=== PATIENT | male | born 1960 ===

== ENCOUNTER 2016-11-23 09:29 | Inpatient (IN) | payer OTHER ==
[~2016-11-23] VITALS: Ht 172.7 cm; Wt 89.4 kg
[2016-12-05 21:29] VITALS: BP 126/78
--- NOTE | 2016-12-05 21:29 | NUR ---
ADMISSION NOTE RECEIVED IN THE UNIT AT THIS TIME. PATIENT IS A 56 YEAR OLD MALE WHO PRESENTS TO [facility] FOR SUPERVISED WITHDRAWAL FOR ETOH DEPENDENCE. VS BP-126/78, P-70 T-98.1 R-16 PA-5/10 ON RIGHT RING FINGER AMPUTATION. SpO2 AT 97% IN RA. BODY CHECK DONE, PATIENT WITH RIGHT RING FINGER AMPUTATION . LUNGS CLEAR AND BOWEL SOUNDS ACTIVE ON ALL QUADRANT. ABDOMEN SOFT AND NON-DISTENDED. HAD BM TODAY AND NO DIFFICULTY URINATING . HEIGHT IS 5'8 AND WEIGHT IS 197 LBS . PATIENT IS ALLERGIC TO DILAUDID, EFFEXOR, AND PAXIL PATIENT ON REGULAR DIET AND FULL CODE. PATIENT LIVES WITH A ROOMMATE. 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 HE LIVES WITH A ROOMMATE. PATIENT IS HERE BECAUSE HE STATES "I WANT TO MAKE SURE I'M OKAY BEFORE I START REHAB". PATIENT REPORTS PMH OF DEPRESSION, LEFT DISLOCATED SHOULDER, OSTEOMYELITIS ON LEFT FEMUR, MRSA (LEFT ARM AND STOMACH) AND RIGHT RING FINGER AMPUTATION. NO SEIZURE HISTORY. PATIENT IS THE SOURCE OF INFORMATION. PATIENT'S DRUG OF CHOICE ARE FF: 1.ALCOHOL - STARTED DRINKING SINCE 13 YEARS OLD. DRINKS 12 PACK OF BEER DAILY FOR 2 YEARS. LAST DRINK WAS 2 BEERS ON 11/30/16 2.MARIJUANA-STARTED SINCE HE WAS 12 YEARS OLD. PATIENT SMOKES 1/2 GRAMS DAILY FOR 6 MONTHS. LAST USE WAS 1/4 GRAMS ON 12/05/16 HIS TREATMENT HISTORY WAS IN [place], [place], A YEAR AGO AND STAYED THERE FOR 28 DAYS. PATIENT'S LONGEST PERIOD OF SOBRIETY WAS 15 YEARS, WHEN HE WAS 33 YEARS OLD. PATIENT SMOKES 8-10 CIGARETTE DAILY. URINE DRUG SCREEN RESULTED AND PATIENT WAS POSITIVE FOR BENZO. PATIENT ADMITTED THAT "I TOOK 2 XANAX (5MG) " BEFORE HE CAME HERE TO OVERCOME HIS ANXIETY. PATIENT STATES HE DOES NOT HAVE "PCP". PATIENT ANXIOUS DURING THE INTERVIEW PROCESS. CIWA 3. PATIENT WAS SEEN BY DR. KOENIG WHILE IN INTAKE. PLACED ON FALL/SEIZURE PRECAUTION. PATIENT ORIENTED TO SURROUNDINGS AND HOW TO USE CALL LIGHT. SAFETY MEASURES IN PLACE. CALL LIGHT IN REACH.WILL CONTINUE TO MONITOR.
[2016-12-05] MEDS ORDERED: LOPERAMIDE HCL 2 MG CAPSULE PO PRN ×2 (22:15)
[2016-12-05] MEDS ORDERED: LORAZEPAM 1 MG TABLET PO PRN ×2 (22:15)
[2016-12-05] MEDS ORDERED: CLONIDINE HCL 0.1 MG TABLET PO PRN (22:15)
[2016-12-05] MEDS ORDERED: NICOTINE POLACRILEX 4 MG GUM-PK OF TEN BC PRN (22:15)
[2016-12-05] MEDS ORDERED: MIRALAX 17 GM POWD.PACK PO PRN (22:15)
[2016-12-05] MEDS ORDERED: THIAMINE HCL 200 MG/2 ML VIAL IM ONE (22:15)
[2016-12-05] MEDS ORDERED: DICYCLOMINE HCL 20 MG TABLET PO PRN (22:15)
[2016-12-05] MEDS ORDERED: diphenhydrAMINE 50 MG CAPSULE PO PRN (22:15)
[2016-12-05] MEDS ORDERED: MAGNESIUM HYDROXIDE 30 ML LIQUID UDC PO PRN (22:15)
[2016-12-05] MEDS ORDERED: LORAZEPAM 2 MG/1 ML VIAL IM PRN (22:15)
[2016-12-05] MEDS ORDERED: ONDANSETRON ODT 4 MG TAB.RAPDIS SL PRN (22:15)
[2016-12-05] MEDS ORDERED: ONDANSETRON 4 MG/2 ML VIAL IM PRN (22:15)
[2016-12-05] MEDS ORDERED: MAG HYDROX/AL HYDROX/SIMETH 30 ML LIQUID UDC PO PRN (22:15)
[2016-12-05] MEDS ORDERED: ACETAMINOPHEN 325 MG TABLET PO PRN (22:15)
[2016-12-05] MEDS ORDERED: THIAMINE HCL 200 MG/2 ML VIAL ONE (23:23)
[2016-12-05] MEDS: IBUPROFEN 400 MG TABLET PO PRN (23:23)
[2016-12-05] MEDS: HYDROXYZINE PAMOATE 25 MG CAPSULE PO PRN (23:23)
--- NOTE | 2016-12-05 23:23 | NUR ---
PRN ATIVAN /CLONIDINE RE-ASSESSMENT ATIVAN AND CLONIDINE HELPFUL AND EFFECTIVE. CIWA FROM 12 TO 6 AND COWS FROM 15 TO 8. PATIENT LESS ANXIOUS AND LESS RESTLESS AND AGITATED. WILL CONTINUE TO MONITOR. Addendum: 12/06/16 at 0512 by YESY BLAND LVN ERROR : CHARTING IS FOR ANOTHER PATIENT
--- NOTE | 2016-12-05 23:23 | NUR ---
PRN BENADRYL/MOTRIN/VISTARIL PATIENT REQUESTS FOR SLEEP AID , C/O ANXIETY AND PAIN ON RIGHT RING FINGER AMPUTATION. PRN BENADRYL, MOTRIN AND VISTARIL GIVEN. WILL MONITOR FOR EFFECTIVENESS.
[2016-12-05] MEDS ORDERED: HYDROXYZINE PAMOATE 25 MG CAPSULE ONE (23:24)
[2016-12-05] MEDS ORDERED: IBUPROFEN 400 MG TABLET ONE (23:32)
[2016-12-05 23:35] LABS: *AMPHETAMINE, URINE NEGATIVE (NEGATIVE); *BARBITURATE, URINE NEGATIVE (NEGATIVE); *CANNABINOID, URINE POSITIVE (NEGATIVE); *COCCAINE, URINE NEGATIVE (NEGATIVE); *OPIATE, URINE NEGATIVE (NEGATIVE); *PHENCYCLIDINE SCREEN,URINE NEGATIVE (NEGATIVE)
[2016-12-06] VITALS: BP 120/70
[2016-12-06 01:47] LABS: BASOPHILS # (AUTO) 0.1 K/uL (0.0-0.2); BASOPHILS % (AUTO) 0.8 % (0.0-2.0); EOSINOPHILS # (AUTO) 0.5 K/uL (0.0-0.7); EOSINOPHILS % (AUTO) 7.5 % (0.0-7.0); HEMATOCRIT 39.4 % (40.0-50.0); HEMOGLOBIN 13.6 g/dL (14.0-18.0); LYMPHOCYTES # (AUTO) 1.9 K/uL (0.8-4.8); LYMPHOCYTES % (AUTO) 28.6 % (20.5-51.5); MEAN CORPUSCULAR HEMOGLOBIN 30.9 uug (27.0-31.0); MEAN CORPUSCULAR HGB CONC 35 g/dL (32.0-37.0); MEAN CORPUSCULAR VOLUME 89.3 fL (82.0-92.0); MONOCYTES # (AUTO) 0.6 K/uL (0.1-1.30); MONOCYTES % (AUTO) 9.5 % (0.0-11.0); NEUTROPHILS # (AUTO) 3.7 K/uL (1.8-8.9); NEUTROPHILS % (AUTO) 53.6 % (38.5-71.5); PLATELET COUNT (AUTO) 246 K/uL (150-450); RED BLOOD CELL COUNT(AUTO) 4.41 MIL/uL (4.70-6.10); RED CELL DISTRIBUTION WIDTH 12.9 % (11.5-14.5); WHITE BLOOD COUNT (AUTO) 6.8 K/uL (4.0-11.2)
[2016-12-06 01:50] LABS: ALANINE AMINOTRANSFERASE 39 U/L (16-63); ALBUMIN 3.5 g/dL (3.4-5.0); ALKALINE PHOSPHATASE 65 U/L (50-136); AMYLASE 69 U/L (25-115); ASPARTATE AMINOTRANSFERASE 22 U/L (15-37); BILIRUBIN,TOTAL 0.2 mg/dL (0.2-1.0); CALCIUM 8.1 mg/dL (8.5-10.1); CARBON DIOXIDE 27 mmol/L (21-32); CHLORIDE 105 mmol/L (98-107); GFR 77 mL/min (>60); GLUCOSE 123 mg/dL (74-106); LIPASE 109 U/L (73-393); MAGNESIUM 2.1 mg/dL (1.8-2.4); POTASSIUM 3.7 mmol/L (3.5-5.1); SODIUM SERUM 141 mmol/L (136-145); TOTAL PROTEIN, SERUM 6.6 g/dL (6.4-8.2); UREA NITROGEN, BLOOD 14 mg/dL (7-18)
[2016-12-06 01:59] LABS: THYROID STIMULATING HORMONE 1.754 mIU/mL (0.358-3.740)
[2016-12-06 02:04] LABS: ETHANOL < 3 MG/DL (0-0)
[2016-12-06 02:06] LABS: HIV-1 p24 ANTIGEN NON REACTIVE (NONREACTIVE); HIV-1/2 ANTIBODY NON REACTIVE (NONREACTIVE)
[2016-12-06 02:21] LABS: CHOLESTEROL 151 mg/dL (<200); HDL CHOLESTEROL 35 mg/dL (40-60); TRIGLYCERIDES 145 MG/DL (30-150)
[2016-12-06 04:00] VITALS: BP 102/58
--- NOTE | 2016-12-06 07:05 | NUR ---
Start of Shift Endorsement received from nightshift nurse. PT is a 56 y/o male admitted for alcohol dependence. Pt is being treated by PRN medications until farther evaluation by Dr. Kay. Pt has received PRN Benadryl, Motrin and Vistaril. Pt is tolerating the detox well at this time AEB CIWA 1 at 0400. Pt slept 6 hours. VS WNL, Full Code. Remains compliant with medication and diet regimen. All needs have been met, All safety measures in place per hospital policy. Bed in lowest position, side rails up x2, call-light within reach. Will continue to monitor
--- NOTE | 2016-12-06 07:32 | NUR ---
END OF SHIFT NOTE PATIENT IS NEWLY ADMIT FOR ETOH DEPENDENCE. PATIENT IS FULL CODE, REGULAR DIET AND ALLERGIC TO PAXIL, EFFEXOR AND DILAUDID. PATIENT DRINKS 12 PACK OF BEER FOR 2 YEARS . LAST DRINK WAS 2 BEERS ON 12/05/16. PATIENT IS NOT ON TAPER, PRN AVAILABLE. PATIENT REPORTS PMH OF DEPRESSION. DISLOCATED LEFT SHOULDER, LEFT FEMUR OSTEOMYELITIS, MRSA (LEFT ARM AND STOMACH) AND RIGHT RING FINGER AMPUTATION. NO SEIZURE HISTORY. WOUND CONSULT ORDER ON RIGHT FINGER AMPUTATION. PATIENT WAS GIVEN THIAMINE INJECTION ON LEFT DELTOID AND PRN BENADRYL, VISTARIL AND MOTRIN AT 2051., EFFECTIVE. PATIENT WAS PLACED ON FALL/SEIZURE PRECAUTION. SAFETY MEASURES IN PLACE. CALL LIGHT IN REACH. WILL CONTINUE TO MONITOR . SLEPT 6 HOURS. FLUID INTAKE OF 500 ML. VOIDED X1 . NO BM. LAST CIWA 1.
[2016-12-06 08:00] VITALS: BP 114/72
[2016-12-06] MEDS: FOLIC ACID 1 MG TABLET PO SCH (08:36)
[2016-12-06] MEDS: THIAMINE HCL 100 MG TABLET PO SCH (08:36)
[2016-12-06] MEDS: IBUPROFEN 400 MG TABLET PO PRN ×2 (08:36→20:01)
[2016-12-06] MEDS: MULTIVITAMINS,THERAPEUTIC TABLET PO SCH (08:36)
--- NOTE | 2016-12-06 08:36 | NUR ---
PRN Motrin PT reports 6/10 body aches. Administered PRN Motrin 400 mg. Will re-assess.
[2016-12-06] MEDS ORDERED: TUBERCULIN,PURIF.PROT.DERIV. 5 TU/0.1 ML TEST ID ONE (09:00)
[2016-12-06] MEDS ORDERED: PNEUMOCOCCAL 23-VAL P-SAC VAC 0.5 ML VIAL IM ONE (09:00)
[2016-12-06] MEDS ORDERED: NICOTINE 7 MG/24HR PATCH TD SCH (09:00)
--- NOTE | 2016-12-06 09:10 | NUR ---
Medication Re-assessment Pt reports 2/10 pain upon assessment. Medication was effective.
[2016-12-06 12:00] VITALS: BP 105/72
[2016-12-06] MEDS ORDERED: LORAZEPAM 1 MG TABLET PO PRN ×2 (13:45)
[2016-12-06] MEDS: GABAPENTIN 300 MG CAPSULE PO SCH ×2 (15:01→20:01)
[2016-12-06 16:00] VITALS: BP 126/79
[2016-12-06] MEDS: NEOMY/BACITRAC/POLYMI OINT 28.35 GM TUBE TOP SCH (17:25)
--- NOTE | 2016-12-06 18:56 | NUR ---
End of Shift Endorsement given nightshift nurse. PT is a 56 y/o male admitted for alcohol dependence. Pt is being treated by PRN medications . Pt has received PRN Motrin for generalized body pain, medication was effective. Educated pt on deep breathing techniques and guided imagery to help relief minor to moderate anxiety, pt was able to demonstrate the exercises back. Pt is tolerating the detox well at this time AEB CIWA 1 at 1600. Pt participated in groups and activities. Pt reports readiness for sobriety. VS WNL, Full Code. Intake: 3038ml, Void x6, BM x2. PT is alert and oriented x4. Pt is in STABLE condition at this time. Remains compliant with medication and diet regimen. All needs have been met, All safety measures in place per hospital policy. Bed in lowest position, side rails up x2, call-light within reach. Will continue to monitor
--- NOTE | 2016-12-06 19:39 | NUR ---
START OF SHIFT NOTE Pt is a 56 y/o male admitted for ETOH dependence. Pt has an allergy to hydromorphone, paroxetine, and venlafaxine. Per day shift nurse pt is not on a scheduled taper at this time, but has PRN medications readily available for any discomfort/distress. Pt received Motrin PO PRN during the day shift. Last CIWA: 1(1600). At this time pt is noted sitting in his chair in his room listening to music whilst reading a article of some sort. Pt stated " I'm doing just fine. I had a good day." Pt denies any pain/discomfort. Pt was encouraged to notify staff of any changes in condition or of any concerns. Pt verbalized an understanding. All safety measures in place; side rails up x 2 bed locked and in low position and call light is within reach. Will continue to monitor.
[2016-12-06 20:00] VITALS: BP 143/82
--- NOTE | 2016-12-06 20:00 | NUR ---
VISTARIL AND MOTRIN PRN ADMINISTRATION Pt stated " I'm starting to feel a little anxious and restless, and My finger is hurting like a 6/10. Can I have something?" Motrin 400 mg PO PRN and Vistaril 25 mg PO PRN was given. Pt was encouraged to notify staff of any changes in condition or of any concerns. Pt verbalized an understanding. All safety measures in place. Will monitor for effectiveness.
[2016-12-06] MEDS: HYDROXYZINE PAMOATE 25 MG CAPSULE PO PRN (20:01)
--- NOTE | 2016-12-06 21:00 | NUR ---
RENATO AND ANTON PRN REASSESSMENT Pt stated " I feel better now, and My finger doesn't hurt so much. It's about down to a 11/07." PRNS effective. Will continue to monitor.
--- NOTE | 2016-12-07 | NUR ---
CIWA AND VITALS REFUSED Pt refused to be assessed and have vitals taken at this time. Pt was encouraged x 3 with risks and benefits explained, but the pt still declined. All safety measures in place. Will continue to monitor. Addendum: 12/07/16 at 0025 by LAWANDA FOSTER LVN Amended: Links added.
--- NOTE | 2016-12-07 04:00 | NUR ---
CIWA AND VITALS REFUSED Pt refused to be assessed and have vitals taken at this time. Pt was encouraged x 3 with risks and benefits explained, but the pt still declined. All safety measures in place. Will continue to monitor. Addendum: 12/07/16 at 0540 by LAWANDA FOSTER LVN Amended: Links added.
--- NOTE | 2016-12-07 07:50 | NUR ---
Start of Shift Endorsement received from nightshift nurse. PT is a 56 y/o male admitted for alcohol dependence. Pt is full code regular diet on fall and seizure precautions reported allergies to Paxil, Effexor, Dilaudid. Pt continues being treated by PRN medications until further evaluation by Dr. Kay. Pt has received PRN Motrin and Vistaril at night time , medication were effective per overnight houseperson nurse. Treatment plan tolerated well by the patient as evidenced by pt's last CIWA score of 2 which was taken at 0400. Pt slept a total of 6 hours last night. Pt remains compliant with medication and diet regimen. Pt is currently in his room laying in bed watching TV. All safety measures in place per hospital policy. Bed in lowest position, side rails up x2, call-light within reach. Will continue to monitor and provide support.
[2016-12-07 08:00] VITALS: BP 144/88
--- NOTE | 2016-12-07 08:02 | NUR ---
END OF SHIFT NOTE Pt is a 56 y/o male admitted for ETOH dependence. Pt has an allergy to hydromorphone, paroxetine, and venlafaxine. Pt is not on a scheduled taper at this time, but has PRN medications readily available for any discomfort/distress. Pt received Motrin 400 mg PO PRN and Vistaril 25 mg PO PRN during the shift. Last CIWA: 2(1999). Pt slept for a total of 6 hours. All safety measures in place; side rails up x 2 bed locked and in low position and call light is within reach. Endorsed to the oncoming nurse.
[2016-12-07] MEDS: NICOTINE 14 MG/24HR PATCH TD SCH (09:00)
[2016-12-07] MEDS ORDERED: NICOTINE 14 MG/24HR PATCH TD SCH (09:00)
[2016-12-07] MEDS: NEOMY/BACITRAC/POLYMI OINT 28.35 GM TUBE TOP SCH ×2 (09:56→17:00)
[2016-12-07] MEDS: THIAMINE HCL 100 MG TABLET PO SCH (09:56)
[2016-12-07] MEDS: MULTIVITAMINS,THERAPEUTIC TABLET PO SCH (09:56)
[2016-12-07] MEDS: GABAPENTIN 300 MG CAPSULE PO SCH ×3 (09:56→20:42)
[2016-12-07] MEDS: FOLIC ACID 1 MG TABLET PO SCH (09:56)
[2016-12-07 12:00] VITALS: BP 112/84
[2016-12-07 16:00] VITALS: BP 134/97
--- NOTE | 2016-12-07 19:15 | NUR ---
End of Shift Endorsement received from nightshift nurse. PT is a 56 y/o male admitted for alcohol dependence. Pt is full code regular diet on fall and seizure precautions reported allergies to Paxil, Effexor, Dilaudid. Pt continues being treated by PRN medications until further evaluation by Dr. Kay. Pt has not received any PRN medication during my shift. Treatment plan tolerated well by the patient as evidenced by pts last CIWA score of 1 which was taken at 1600. Pt participated in some activities and groups. Pt ate all of his meals. Pt remains compliant with the treatment plan. Pts vital signs within normal limits, A/Ox4, denies chest pain. Respirations even unlabored, lungs clear upon auscultation abdomen soft and non- distended. Pt denies nausea, vomiting and diarrhea. Pt total fluid intake was 1563ml with 3 voids and no stool. Safety measures in place, call light within reach. All pertinent information discussed with security shift manager, endorsement given to security shift manager nurse.
[2016-12-07 20:00] VITALS: BP 140/92
--- NOTE | 2016-12-07 20:00 | NUR ---
Start of Shift Patient is a 56-year-old, male, admitted for ETOH Dependence, consuming 8-10 servings of beer daily. Pt also reports taking non-prescribed opioids, methamphetamine salts, cannabis and cocaine intermittently. No history of seizures. With allergies to Dilaudid, Paroxetine and Venlafaxine. Pt on Regular Diet and is Full Code. Pt is AAOx4, no anxiety nor SOB noted. Pt is ambulatory with steady gait. With right middle finger amputation with reddish to pinkish color. Dressing change done. Fall, universal and safety prec implemented. Call light within reach. Kept pt warm, dry and comfortable. Last CIWA=0. Will continue to monitor.
[2016-12-07] MEDS: IBUPROFEN 400 MG TABLET PO PRN (20:42)
--- NOTE | 2016-12-07 20:42 | NUR ---
RN note PRN Motrin Pt c/o right middle finger pain=01/07. Administered Motrin 400 mg PO. No SOB noted. Will monitor and reassess. Addendum: 12/08/16 at 0349 by TRE CLEMENTS RN Correction: Pain was on R hand 4th finger r/t hx of amputation, not middle finger.
[2016-12-07] MEDS ORDERED: Gabapentin PO (20:47)
[2016-12-07] MEDS ORDERED: Ibuprofen PO (20:47)
[2016-12-07] MEDS ORDERED: DIPH50CA37 PO (20:47)
[2016-12-07] MEDS ORDERED: Nicotine TD (20:47)
[2016-12-07] MEDS ORDERED: HYDR-3895 PO (20:47)
--- NOTE | 2016-12-07 21:45 | NUR ---
RN note reassess Pt verbalized pain relief, pain level=2/10.
--- NOTE | 2016-12-07 22:10 | NUR ---
RN note Endorsed pt to [facility], for continuity of care.
[2016-12-08] VITALS: BP 134/73
[2016-12-08 05:00] VITALS: BP 129/77
--- NOTE | 2016-12-08 07:20 | NUR ---
End of Shift Note: Pt is 56M, admitted for ETOH Dependence on 12/15/16. Pt is AOx4 without s/s of acute distress noted. Pt is full code, on regular diet, and on fall/seizure precautions. Pt noted with allergy to Hydromorphone, Paroxetine, and Venlafaxine. Pt reports hx of Depression, dislocated shoulder, osteomyelitis, MRSA, R 4th digit amputation. Pt was on lorazepam PRN symptom-triggered therapy protocol to manage withdrawal symptoms. Pt is compliant with plan of care. Pt slept for 5 hours. Respirations even and unlabored. Last CIWA score was 0 at 0400. Pt reported pain on R hand amputated 4th finger. PRN Motrin given and was effective. No N/V noted during the shift. Fall and Sz precautions observed. Bed in lowest position. Side rails up x2. Call light functioning and within reach. All needs attended and met. Will endorse to day shift nurse.
--- NOTE | 2016-12-08 07:22 | NUR ---
Start of shift note SBAR report rcv'd. Pt was admitted for ETOH dependence. Pt has a PMH of depression, dislocated L shoulder, osteomyelitis of L femur, MRSA of the left arm, Right ring finger amputation, s/p surgery 3 weeks ago. Pt was on PRN ativan to manage his s/s of withdrawal. Pt states that he feels comfortable at this time. Pt is scheduled to discharge today. Will continue to monitor pt.
[2016-12-08 08:00] VITALS: BP 150/94
[2016-12-08 08:12] LABS: *AMPHETAMINE, URINE NEGATIVE (NEGATIVE); *BARBITURATE, URINE NEGATIVE (NEGATIVE); *CANNABINOID, URINE POSITIVE (NEGATIVE); *COCCAINE, URINE NEGATIVE (NEGATIVE); *OPIATE, URINE NEGATIVE (NEGATIVE); *PHENCYCLIDINE SCREEN,URINE NEGATIVE (NEGATIVE)
[2016-12-08] MEDS: NICOTINE 14 MG/24HR PATCH TD SCH (09:00)
[2016-12-08] MEDS: THIAMINE HCL 100 MG TABLET PO SCH (09:13)
[2016-12-08] MEDS: IBUPROFEN 400 MG TABLET PO PRN (09:13)
[2016-12-08] MEDS: GABAPENTIN 300 MG CAPSULE PO SCH (09:13)
[2016-12-08] MEDS: MULTIVITAMINS,THERAPEUTIC TABLET PO SCH (09:13)
[2016-12-08] MEDS: FOLIC ACID 1 MG TABLET PO SCH (09:13)
[2016-12-08] MEDS: NEOMY/BACITRAC/POLYMI OINT 28.35 GM TUBE TOP SCH (09:14)
--- NOTE | 2016-12-08 09:35 | NUR ---
Discharge note Pt was admitted for ETOH dependence. Pt had a CIWA of 0. VS are WNL. Pt had pain 5/10 in right ring finger, motrin was administered. Pt LBM was 12/08/16. Pt denies SI. Pt demonstrated proper wound care technique and verbalized his understanding of the discharge instructions. Pt states that he feels ready for discharge. Pt discharge instructions, prescriptions, and belongings all returned to pt. Pt ID band removed, pt ambulated off of unit with [facility]ATION [facility]IEF, left facility via [facility].
[2016-12-09 03:06] LABS: HCV AB 1.2 s/co ratio (0.0-0.9); HEPATITIS B CORE AB, IgM Negative (Negative); HEPATITIS B SURFACE AG Negative (Negative)
== END 2016-12-08 09:35 | disposition home or self-care (01) | DRG 895 ==
LOC: SRC 12-05 20:28
PROVIDERS: ADMIT Internal Medicine; ATTEND Internal Medicine
PROC: HZ2ZZZZ Detoxification Services for Substance Abuse Treatment (ICD-10-PCS; principal; 2016-12-05)
PROC: HZ41ZZZ Group Counseling for Substance Abuse Treatment, Behavioral (ICD-10-PCS; 2016-12-07)
PROC: HZ31ZZZ Individual Counseling for Substance Abuse Treatment, Behavioral (ICD-10-PCS; 2016-12-07)
DX: F10.230 Alcohol dependence with withdrawal, uncomplicated (principal); F11.10 Opioid abuse, uncomplicated; Y90.9 Presence of alcohol in blood, level not specified; F14.10 Cocaine abuse, uncomplicated; F12.10 Cannabis abuse, uncomplicated; F15.10 Other stimulant abuse, uncomplicated; Z81.1 Family history of alcohol abuse and dependence; Z82.49 Family history of ischemic heart disease and other diseases of the circulatory system; Z89.021 Acquired absence of right finger(s); F17.210 Nicotine dependence, cigarettes, uncomplicated; F41.9 Anxiety disorder, unspecified; Z81.8 Family history of other mental and behavioral disorders; D64.9 Anemia, unspecified; G54.6 Phantom limb syndrome with pain; F32.9 Major depressive disorder, single episode, unspecified
CPT/HCPCS: 36415; 70030-TC; 71010; 80307; 80346; 80349; 83690; 83735; 84443; 85025; 86592; 86705; 86803; 87340; 87806; 90732; A4663; A9150; G6040-TC; J3411; Q0163